=== PATIENT | female | born 2000 | race Asian ===

== ENCOUNTER 2018-03-29 13:58 | Outpatient (CLI) | payer OTHER ==
--- NOTE | 2018-03-29 14:27 | CT ---
BRAIN CT WITHOUT IV CONTRAST: HISTORY: A 18-year-old female with a history of head injury after a fall in February with tenderness to head. FINDINGS: No focal mass or midline shift. No intra- or extraaxial hemorrhage. Sinuses and mastoids are clear of acute process. IMPRESSION: No mass or bleed or other acute process. POS: [facility]
--- NOTE | 2018-03-29 14:55 | RAD ---
CERVICAL SPINE 2 VIEWS: HISTORY: Pain. COMPARISON: None. FINDINGS: AP, open-mouth, and lateral views of the cervical spine are submitted for interpretation. Images are obtained where the patient has a cervical collar. Vertebral body height is maintained. No fracture . Disk space heights are preserved. Predental space is normal. Lateral masses of C1 and C2 articul ate appropriately. There is no malalignment on the AP projection. Mild straightening of normal cervical lordosis is not ed on the lateral projection and is presumed to be due to a collar. IMPRESSION: Straightening of normal cervical lordosis, presumed to be positional/due to collar. No evidence of f racture. POS: [facility]
== END 2018-03-29 13:59 | disposition home or self-care (01) ==
LOC: TBSIIMAG 13:58
PROVIDERS: ATTEND Surgery
DX: S06.5X0A Traumatic subdural hemorrhage without loss of consciousness, initial encounter (principal); S12.000A Unspecified displaced fracture of first cervical vertebra, initial encounter for closed fracture
CPT/HCPCS: 70450; 72040

== ENCOUNTER 2018-04-29 13:01 | Outpatient (CLI) | payer OTHER ==
--- NOTE | 2018-04-29 15:19 | RAD ---
CERVICAL SPINE THREE VIEWS: HISTORY: C1 fracture. Followup. COMPARISON: 03/29/2018 FINDINGS: Straightening of the normal lordotic curvature. Vertebral body heights are maintained. The cervicot horacic junction is intact. No acute fracture or dislocation is evident. IMPRESSION: No acute osseous abnormalities demonstrated. C1 fracture not visible on this exam. POS: [facility]
== END 2018-04-29 13:02 | disposition home or self-care (01) ==
LOC: TBSIIMAG 13:01
PROVIDERS: ATTEND Surgery
DX: S12.9XXA Fracture of neck, unspecified, initial encounter (principal)
CPT/HCPCS: 72040